=== PATIENT | female | born 1950 | race Caucasian/White ===

== ENCOUNTER 2018-01-29 11:52 | Emergency (ER) | payer MEDICARE ==
[~2018-01-29] VITALS: Ht 167.6 cm; Wt 140.0 kg
[2018-01-29 13:00] LABS: MICROSCOPIC INDICATED
[2018-01-29 14:03] VITALS: BP 174/84
== END 2018-01-29 14:17 | disposition home or self-care (01) ==
LOC: ED 14:11
DX: N30.00 Acute cystitis without hematuria (principal)
CPT/HCPCS: 81001; 99283